=== PATIENT | male | born 1990 | race African-American/Black ===

== ENCOUNTER 2016-12-19 14:20 | Emergency (ER) | payer SELFPAY ==
[~2016-12-19] VITALS: Ht 177.8 cm; Wt 69.1 kg
[~2016-12-19 14:20] MED LIST: MOTRIN600 MG PO; NORCO 5/3251 TABLET PO
[2016-12-19] MEDS ORDERED: MOTRIN800 MG PO (16:16)
[2016-12-19 17:05] VITALS: BP 144/74
== END 2016-12-19 17:05 | disposition home or self-care (01) ==
LOC: EME 14:20
DX: S93.402A Sprain of unspecified ligament of left ankle, initial encounter (principal); S93.602A Unspecified sprain of left foot, initial encounter; W51.XXXA Accidental striking against or bumped into by another person, initial encounter; Y93.62 Activity, american flag or touch football; F17.200 Nicotine dependence, unspecified, uncomplicated
CPT/HCPCS: 73630; 99281; 99284